=== PATIENT | female | born 1975 ===

== ENCOUNTER 2020-10-06 15:25 | Emergency (ER) | payer OTHER ==
[2020-10-06] MEDS ORDERED: Ketorolac 30 MG/ML SDV IVPUSH ONE (15:46)
[2020-10-06 16:11] LABS: BLOOD UREA NITROGEN,BUN 15 mg/dL (7.0-18.0); CARBON DIOXIDE,CO2 24.7 mmol/L (21.0-32.0); CHLORIDE,CL 104 mmol/L (98-107); GLUCOSE RANDOM 94 mg/dL (74-106); SODIUM,NA 139 mmol/L (136-145)
[2020-10-06] MEDS ORDERED: Ondansetron 4 MG/2 ML SDV IVPUSH ONE (16:58)
[2020-10-06] MEDS ORDERED: Morphine 4 MG/ML Syringe IVPUSH ONE (16:58)
--- NOTE | 2020-10-06 17:03 | CT ---
Indication: Left flank pain x1 day Technique: Nonenhanced axial CT imaging through the abdomen and pelvis. Sagittal and coronal reconstructions are provided. Comparison: CT abdomen pelvis with contrast 05/16/2017 Findings: There is normal renal parenchymal attenuation without hydronephrosis. No stones are seen in the renal collecting systems, ureters, or urinary bladder. Small cortical cysts are noted in the left upper pole and anterior right lower pole. There is unremarkable noncontrast appearance of the liver, gallbladder, spleen, pancreas, and adrenal glands. There is no abdominal lymphadenopathy. There is normal caliber of the abdominal aorta. The stomach and duodenum are unremarkable. There is no small bowel thickening or abnormal distention. The appendix is not visualized. There is no colonic wall thickening. No inflammatory changes are demonstrated in the mesentery. Mild degenerative changes are noted in the lumbar spine and sacroiliac joints. The included lung bases are clear. Impression: No acute process demonstrated in the abdomen and pelvis. No nephrolithiasis or urinary obstruction. Please note that all CT scans at this facility use dose modulation, iterative reconstruction, and/or weight-based dosing when appropriate to reduce radiation dose to as low as reasonably achievable. Dictated by Arun Crain MD @ Oct 06 2020 4:52PM Signed by Dr. Arun Crain @ Oct 06 2020 5:02PM
--- NOTE | 2020-10-06 17:07 | EDM.PDOC ---
ED HPI GENERAL MEDICAL PROBLEM - General Chief Complaint: Flank Pain Stated Complaint: REFFERED FROM OB Time Seen by Provider: 10/06/20 15:30 Source of Information: Reports: Patient History Limitations: Reports: No Limitations - History of Present Illness INITIAL COMMENTS - FREE TEXT/NARRATIVE: HISTORY AND PHYSICAL: History of present illness: Patient is a 45-year-old female who presents [facility] the emergency room [facility] with concern for a kidney stone. Patient was seen at the clinic for left flank/rib pain. She has also had some urinary frequency and dysuria. She denies any injury, trauma or falls. Patient denies any fever, chills, headache, change in vision, syncope or near syncope. Denies any chest pain, back pain, shortness of breath or cough. Denies any abdominal pain, nausea, vomiting, diarrhea, constipation or dysuria. Has not noted any blood in urine or stool. Denies any concern for or STIs. Patient has been eating and drinking appropriately. Review of systems: As per history of present illness and below otherwise all systems reviewed and negative. Past medical history: As per history of present illness and as reviewed below otherwise noncontributory. Surgical history: As per history of present illness and as reviewed below otherwise noncontributory. Social history: See social history for further information Family history: As per history of present illness and as reviewed below otherwise noncontributory. Physical exam: General: Well developed and well nourished 45-year-old female. Alert and orientated x 3. Nontoxic in appearance and in no acute distress. Vital signs are stable and have been reviewed by me. Nursing notes were reviewed. HEENT: Atraumatic, normocephalic, pupils equal and reactive bilaterally, negative for conjunctival pallor or scleral icterus, mucous membranes moist, trachea midline. No drooling or trismus noted. No meningeal signs. No hot potato voice noted. Lungs: Clear to auscultation bilaterally. No wheezes, rales, or rhonchi. Chest nontender. Normal work of breathing, no accessory muscles used. Heart: S1S2, regular rate and rhythm without overt murmur, gallops, or rubs. No JVD. No peripheral edema Abdomen: Soft, nondistended, nontender. Normoactive bowel sounds. Negative for masses or costovertebral tenderness. Pelvis: Stable nontender. Genitourinary/Rectal: Deferred. Skin: Intact, warm, dry. No lesions or rashes noted. No herpetic shingles type rash noted. Hematologic: No petechiae or purpra. Mucosa appropriate color and normal nail bed color and refill. Extremities: Atraumatic, moves all extremities per self without difficulty or deficits, negative for cords or calf pain. Neurovascular unremarkable. Neuro: Awake, alert, oriented. Cranial nerves II through XII unremarkable. Cerebellum unremarkable. Motor and sensory unremarkable throughout. Exam nonfocal. Psychiatric: Mood and affect are appropriate. Normal thought process. Answering questions appropriately. Notes: *This patient was seen and evaluated during the 2019 SARS-CoV-2 novel coronavirus pandemic period. Community viral transmission is ongoing at time of this encounter and the emergency department is operating under pandemic response procedures. CT shows no acute process demonstrated in the abdomen and pelvis. No nephrolithiasis or urinary obstruction. The lung bases are clear. Patient skin is unremarkable, no skin disruptions for concern of shingles at this time. Vital signs have improved. I have talked with the patient about today's findings, in addition to providing specific details for plan of care. Reassessment at the time of disposition demonstrates that the patient is in no acute distress. We discussed the need for close follow-up if her discomfort continues we also discussed that this could be shingles outbreak but just has not developed a rash yet. The patient is stable for discharge, counseling was provided and we discussed in great detail signs and symptoms that would prompt them to return to the Emergency Department. Medication, follow up and supportive care measures were reviewed and discussed. Voices understanding and is agreeable to plan of care. Denies any further questions or concerns at this time. Diagnostics: CBC, CMP, UA, CT abd/pelvis Therapeutics: Toradol, Zofran, morphine Prescription: Macrobid, tramadol Impression: Flank pain Plan: 1. Today your lab work and CT scan are within normal limits. Please take the medications as discussed and directed. If your symptoms should worsen, new symptoms develop or any of the signs and symptoms we discussed should arise please return to the emergency room or call 911 (if needed). 2. You can alternate Tylenol and ibuprofen as needed for pain and fever management. 3. We encourage you to follow up with your primary care provider in the next few days for re-evaluation and further care/management. Definitive disposition and diagnosis as appropriate pending reevaluation and review of above. left rib pain Pain Score (Numeric/FACES): 8 - Related Data Allergies Allergy/AdvReac Type Severity Reaction Status Date / Time No Known Allergies Allergy Verified 10/06/20 15:40 Home Meds: Home Meds Nitrofurantoin Monohyd/M-Cryst [Macrobid 100 mg Capsule] 100 mg PO BID 5 Days #10 capsule 10/06/20 [Rx] traMADol [Ultram] 50 mg PO Q6H PRN #20 tab 10/06/20 [Rx] Past Medical History HEENT History: Reports: None Other HEENT History: wears glasses for driving Cardiovascular History: Reports: Hypertension Respiratory History: Reports: None Gastrointestinal History: Reports: None Other Gastrointestinal History: 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: Musculoskeletal History: Reports: None Psychiatric History: Reports: None Endocrine/Metabolic History: Reports: Hypothyroidism, Obesity/BMI 30+ Dermatologic History: Reports: Eczema - Infectious Disease History Infectious Disease History: Reports: Chicken Pox - Past Surgical History HEENT Surgical History: Reports: None Female Surgical History: Reports: Hysterectomy, Salpingo-Oophorectomy Musculoskeletal Surgical History: Reports: None Social & Family History - Family History Family Medical History: No Pertinent Family History - Tobacco Use Packs/Tins Daily: 1 - Caffeine Use Caffeine Use: Reports: Coffee, Energy Drinks - Recreational Drug Use Recreational Drug Use: No ED ROS GENERAL - Review of Systems Review Of Systems: Comprehensive ROS is negative, except as noted in HPI. ED EXAM, GI/ABD - Physical Exam Exam: See Below (See dictation) Course - Vital Signs Last Recorded V/S: Last Vital Signs Temp 98.1 F 10/06/20 15:36 Pulse 77 10/06/20 17:34 Resp 18 10/06/20 17:34 BP 138/89 10/06/20 17:34 Pulse Ox 95 10/06/20 17:34 - Orders/Labs/Meds Labs: Laboratory Tests 10/06/20 10/06/20 Range/Units 15:42 15:42 WBC 8.71 (4.0-11.0) K/uL RBC 5.30 (4.30-5.90) M/uL Hgb 15.0 (12.0-16.0) g/dL Hct 46.9 H (36.0-46.0) % MCV 88.5 (80.0-98.0) fL MCH 28.3 (27.0-32.0) pg MCHC 32.0 (31.0-37.0) g/dL RDW Std Deviation 45.7 (28.0-62.0) fl RDW Coeff of Ryann 14 (11.0-15.0) % Plt Count 338 (150-400) K/uL MPV 11.20 (7.40-12.00) fL Neut % (Auto) 71.5 (48.0-80.0) % Lymph % (Auto) 19.5 (16.0-40.0) % Day % (Auto) 7.1 (0.0-15.0) % Eos % (Auto) 1.6 (0.0-7.0) % Baso % (Auto) 0.3 (0.0-1.5) % Neut # (Auto) 6.2 H (1.4-5.7) K/uL Lymph # (Auto) 1.7 (0.6-2.4) K/uL Day # (Auto) 0.6 (0.0-0.8) K/uL Eos # (Auto) 0.1 (0.0-0.7) K/uL Baso # (Auto) 0.0 (0.0-0.1) K/uL Nucleated RBC % 0.0 /100WBC Nucleated RBCs # 0 K/uL Sodium 139 (136-145) mmol/L Potassium 4.0 (3.5-5.1) mmol/L Chloride 104 (98-107) mmol/L Carbon Dioxide 24.7 (21.0-32.0) mmol/L BUN 15 (7.0-18.0) mg/dL Creatinine 0.8 (0.6-1.0) mg/dL Est Cr Clr Drug Dosing 97.17 mL/min Estimated GFR (MDRD) > 60.0 ml/min Glucose 94 (74-106) mg/dL Calcium 9.8 (8.5-10.1) mg/dL Total Bilirubin 0.2 (0.2-1.0) mg/dL AST 15 (15-37) IU/L ALT 30 (14-63) IU/L Alkaline Phosphatase 125 H (46-116) U/L Total Protein 8.3 H (6.4-8.2) g/dL Albumin 4.3 (3.4-5.0) g/dL Globulin 4.0 (2.6-4.0) g/dL Albumin/Globulin Ratio 1.1 (0.9-1.6) Meds: Medications Discontinued Medications Generic Name Dose Route Start Last Admin Trade Name Freq PRN Reason Stop Dose Admin Ketorolac Tromethamine 30 mg 10/06/20 15:46 10/06/20 15:55 Toradol IVPUSH 10/06/20 15:47 30 mg ONETIME ONE Administration Morphine Sulfate 4 mg 10/06/20 16:58 10/06/20 17:03 Morphine IVPUSH 10/06/20 16:59 4 mg ONETIME ONE Administration Ondansetron HCl 4 mg 10/06/20 16:58 10/06/20 17:03 Zofran IVPUSH 10/06/20 16:59 4 mg ONETIME ONE Administration Departure - Departure Time of Disposition: 17:14 Disposition: Home, Self-Care 01 Clinical Impression: Flank pain - Discharge Information Prescriptions: Nitrofurantoin Monohyd/M-Cryst [Macrobid 100 mg Capsule] 100 mg PO BID 5 Days #10 capsule traMADol [Ultram] 50 mg PO Q6H PRN #20 tab PRN Reason: Pain Instructions: Flank Pain, Adult, [id number] Referrals: Estela Guerra CATCH[employer]IP [Primary Care Provider] - Forms: ED Department Discharge Additional Instructions: The following information is given to patients seen in the emergency department who are being discharged to home. This information is to outline your options for follow-up care. We provide all patients seen in our emergency department with a follow-up referral. The need for follow-up, as well as the timing and circumstances, are variable depending upon the specifics of your emergency department visit. If you don't have a primary care physician on staff, we will provide you with a referral. We always advise you to contact your personal physician following an emergency department visit to inform them of the circumstance of the visit and for follow-up with them and/or the need for any referrals to a consulting specialist. The emergency department will also refer you to a specialist when appropriate. This referral assures that you have the opportunity for follow-up care with a specialist. All of these measure are taken in an effort to provide you with optimal care, which includes your follow-up. Under all circumstances we always encourage you to contact your private physician who remains a resource for coordinating your care. When calling for follow-up care, please make the office aware that this follow-up is from your recent emergency room visit. If for any reason you are refused follow-up, please contact the [facility] Emergency Department at and asked to speak to the emergency department charge nurse. [facility] [address] [place] [address] [facility] [address] [place] [id number] Thank you for choosing the [facility] emergency department in [place] for your medical needs today. It was a pleasure caring for you. Today you were seen in the emergency department for flank pain and to rule out a kidney stone. 1. Today your lab work and CT scan are within normal limits. Please take the medications as discussed and directed. If your symptoms should worsen, new symptoms develop or any of the signs and symptoms we discussed should arise please return to the emergency room or call 911 (if needed). 2. You can alternate Tylenol and ibuprofen as needed for pain and fever management. 3. We encourage you to follow up with your primary care provider in the next few days for re-evaluation and further care/management. Sepsis Event Note (ED) - Evaluation Sepsis Screening Result: No Definite Risk - Focused Exam Vital Signs: Vital Signs Temp Pulse Resp BP Pulse Ox 10/06/20 17:34 77 18 138/89 95 10/06/20 17:09 78 18 149/86 H 98 10/06/20 15:36 98.1 F 81 16 175/107 H 97
[2020-10-06 17:35] VITALS: BP 138/89; PULSE 77
== END 2020-10-06 17:36 | disposition home or self-care (01) ==
LOC: MW.ED 15:25
DX: R10.9 Unspecified abdominal pain (principal); I10 Essential (primary) hypertension; E66.9 Obesity, unspecified; Z68.39 Body mass index [BMI] 39.0-39.9, adult
CPT/HCPCS: 36415; 74176; 80053; 85025; 96374; 96375; 99284; J1885; J2270; J2405